=== PATIENT | female | born 1955 | race Caucasian/White ===

== ENCOUNTER 2017-04-03 06:11 | Emergency (ER) | payer OTHER ==
[~2017-04-03] VITALS: Ht 170.2 cm; Wt 82.6 kg
[2017-04-03] MEDS ORDERED: CYMBALTA60 MG PO (06:41)
[2017-04-03] MEDS ORDERED: MEDDOSEPAK PO (08:48)
[2017-04-03 08:58] VITALS: BP 92/53
== END 2017-04-03 08:58 | disposition home or self-care (01) | DRG 916 ==
LOC: ED 06:11
DX: T78.40XA Allergy, unspecified, initial encounter (principal); L29.9 Pruritus, unspecified; R21 Rash and other nonspecific skin eruption